=== PATIENT | female | born 1930 | race Caucasian/White ===

== ENCOUNTER 2018-12-19 14:14 | Emergency (ER) | payer BC, OTHER ==
[2018-12-19 14:44] VITALS: BP 176/72; PULSE 66; TEMP 97.6; BMI 30.2
--- NOTE | 2018-12-19 14:57 | PDOC ---
Documentation entered by Yareli Torres SCRIBE, acting as scribe for Mercedez Shaw MD. Mercedez Shaw MD: This documentation has been prepared by the scribe, Yareli Torres SCRIBE, under my direction and personally reviewed by me in its entirety. I confirm that the documentation accurately reflects all work, treatment, procedures, and medical decision making performed by me. History of Present Illness - General Chief Complaint: Injury Stated Complaint: FALL History Source: Patient Exam Limitations: No Limitations - History of Present Illness Initial Comments: 12/19/18 14:40 The patient is an 85 year old female with a reported past medical history significant for daily ASA use presents to the emergency department s/p a mechanical fall. The patient reports she was walking onto her house when she tripped on the stairs leading to the porch. The patient reports she landed on her knees first, then the forearm and her head, with injury to her forehead and nose. Denies LOC. The patient reports associated symptoms of neck soreness and a bump to her forehead, which shes been applying ice to. Denies nausea, vomiting or headache. Allergies: NKDA Past History - Past Medical History Allergies/Adverse Reactions: Allergies Allergy/AdvReac Type Severity Reaction Status Date / Time No Known Allergies Allergy Verified 12/19/18 14:15 Home Medications: Ambulatory Orders Aspirin [ASA -] 81 mg PO DAILY 12/19/18 Hydrochlorothiazide [Hctz -] 25 mg PO DAILY 12/19/18 Levothyroxine [Synthroid -] 50 mcg PO DAILY 12/19/18 Metoprolol Tartrate [Lopressor -] 12.5 mg PO DAILY 12/19/18 Nifedipine [Procardia Xl] 30 mg PO DAILY 12/19/18 Rosuvastatin Calcium [Crestor] 5 mg PO DAILY 12/19/18 Review of Systems - Review of Systems Able to Perform ROS?: Yes Comments:: 12/19/18 14:41 GENERAL/CONSTITUTIONAL: No fever or chills. No weakness. HEAD, EYES, EARS, NOSE AND THROAT: (+)bump to her forehead. No change in vision. No ear pain or discharge. No sore throat. CARDIOVASCULAR: No chest pain or shortness of breath. RESPIRATORY: No cough, wheezing, or hemoptysis. GASTROINTESTINAL: No nausea, vomiting, diarrhea or constipation. GENITOURINARY: No dysuria, frequency, or change in urination. MUSCULOSKELETAL: (+)neck soreness. No joint or muscle swelling or pain. No back pain. SKIN: No rash NEUROLOGIC: No headache, vertigo, loss of consciousness, or change in strength/ sensation. ENDOCRINE: No increased thirst. No abnormal weight change. HEMATOLOGIC/LYMPHATIC: No anemia, easy bleeding, or history of blood clots. ALLERGIC/IMMUNOLOGIC: No hives or skin allergy. *Physical Exam - Physical Exam Comments: GENERAL: Awake, alert, and fully oriented, in no acute distress HEAD: +R frontal hematoma. No bony tenderness. No nasal bony tenderness EYES: PERRLA, EOMI, sclera anicteric, conjunctiva clear ENT: Auricles normal inspection, hearing grossly normal, nares patent, oropharynx clear without exudates. Moist mucosa NECK: Normal ROM, supple, no lymphadenopathy, JVD, or masses LUNGS: Breath sounds equal, clear to auscultation bilaterally. No wheezes, and no crackles HEART: Regular rate and rhythm, normal S1 and S2, no murmurs, rubs or gallops ABDOMEN: Soft, nontender, normoactive bowel sounds. No guarding, no rebound. No masses EXTREMITIES: Normal range of motion, no edema. No clubbing or cyanosis. No cords, erythema, or tenderness. Knees- no deformity, no crepitus. Nayeli- no pain in the anatomic snuffbox B/L, no pain on axial load. NEUROLOGICAL: Cranial nerves II through XII grossly intact. Normal speech, normal gait. Motor and sensation intact SKIN: Warm, Dry, normal turgor, no rashes. +Abrasion to the L knee, slight ecchymosis to the R knee. ED Treatment Course - RADIOLOGY Radiology Studies Ordered: Category Date Time Status HEAD CT WITHOUT CONTRAST [CT] Stat CT Scan 12/19/18 14:30 Ordered Medical Decision Making - Medical Decision Making 12/19/18 14:34 Will obtain CTH as she is over 59 and has a hematoma to the forehead, as well as she is on daily aspirin. If negative, will DC home. No indication for imaging of the hands/wrists and knees. *DC/Admit/Observation/Transfer Diagnosis at time of Disposition: Fall Qualifiers: Encounter type: initial encounter Qualified Code(s): W19.XXXA - Unspecified fall, initial encounter Head injury Qualifiers: Encounter type: initial encounter Qualified Code(s): S09.90XA - Unspecified injury of head, initial encounter - Discharge Dispostion Disposition: HOME Condition at time of disposition: Stable Decision to Admit order: No - Referrals - Patient Instructions Printed Discharge Instructions: DI for Closed Head Injury - Post Discharge Activity
== END 2018-12-19 15:48 | disposition home or self-care (01) ==
LOC: FER 14:14
DX: S09.90XA Unspecified injury of head, initial encounter (principal); W18.39XA Other fall on same level, initial encounter; Y93.89 Activity, other specified; Y92.89 Other specified places as the place of occurrence of the external cause
CPT/HCPCS: 70450-TC; 99281-25